=== PATIENT | female | born 1950 | race African-American/Black ===

== ENCOUNTER 2017-11-22 08:24 | Day surgery (SDC) | payer OTHER, MEDICAID ==
[2017-11-22] MEDS ORDERED: NS 500 ML IV 500 ML IV ONE (08:39)
[2017-11-22] MEDS ORDERED: TETRACAINE 0.5% OPHTH 1 DOSE AFFEYE ONE ×3 (09:00→12:42)
[2017-11-22] MEDS ORDERED: VIGAMOX 0.5% OPHTH 1 DOSE AFFEYE ONE ×3 (09:05→09:15)
[2017-11-22] MEDS ORDERED: PROLENSA OPHTH 1 DOSE AFFEYE ONE (09:16)
[2017-11-22] MEDS ORDERED: ALPHAGAN-P OPHTH 1 DOSE AFFEYE ONE (09:17)
[2017-11-22] MEDS ORDERED: MYDRIACIL OPHTH 1 DOSE AFFEYE ONE ×3 (09:18→09:20)
[2017-11-22] MEDS ORDERED: AK-DILATE 2.5% OPHTH 1 DOSE OP ONE ×3 (09:18→09:20)
[2017-11-22] MEDS ORDERED: CYCLOGYL 1% OPHTH 1 DOSE OP ONE ×3 (09:18→09:20)
[2017-11-22] MEDS ORDERED: BETADINE OPHTH SOLN 5% EACHEYE ONE (12:38)
[2017-11-22] MEDS ORDERED: XYLOCAINE-MPF 1% IJ ONE (12:43)
[2017-11-22] MEDS ORDERED: ADRENALINE CHL INJ IJ ONE (12:43)
[2017-11-22] MEDS ORDERED: DUOVISC IO ONE (12:43)
[2017-11-22] MEDS ORDERED: VIGAMOX 0.5% AFFEYE ONE (12:50)
[2017-11-22] MEDS ORDERED: BSS OPHTH (PLAIN) 500 ML with VANCOMYCIN HCL 500 MG VIAL 25 MG, ADRENALINE CHL INJ 1 MG IR ONE ×3 (12:51)
[2017-11-22 15:22] VITALS: BP 150/75
== END 2017-11-22 13:15 | disposition home or self-care (01) ==
LOC: SURG1 08:24
PROVIDERS: ATTEND Ophthalmology
PROC: 08RK3JZ Replacement of Left Lens with Synthetic Substitute, Percutaneous Approach (ICD-10-PCS; principal; 2017-11-22 15:00)
PROC: 08DK3ZZ Extraction of Left Lens, Percutaneous Approach (ICD-10-PCS; principal; 2017-11-22 15:00)
DX: H25.12 Age-related nuclear cataract, left eye (principal); H25.012 Cortical age-related cataract, left eye
CPT/HCPCS: A4217; J0170; J3370

== ENCOUNTER 2017-12-06 06:52 | Day surgery (SDC) | payer OTHER, MEDICAID ==
[~2017-12-06 06:52] MED LIST: NS 1000 ML 1,000 ML ONE
[2017-12-06] MEDS ORDERED: TETRACAINE 0.5% OPHTH 1 DOSE AFFEYE ONE ×2 (07:00→09:46)
[2017-12-06] MEDS ORDERED: VIGAMOX 0.5% OPHTH 1 DOSE AFFEYE ONE ×4 (07:05→10:09)
[2017-12-06] MEDS ORDERED: PROLENSA OPHTH 1 DOSE AFFEYE ONE (07:16)
[2017-12-06] MEDS ORDERED: ALPHAGAN-P OPHTH 1 DOSE AFFEYE ONE (07:17)
[2017-12-06] MEDS ORDERED: AK-DILATE 2.5% OPHTH 1 DOSE OP ONE ×3 (07:18→07:20)
[2017-12-06] MEDS ORDERED: CYCLOGYL 1% OPHTH 1 DOSE OP ONE ×3 (07:18→07:20)
[2017-12-06] MEDS ORDERED: MYDRIACIL OPHTH 1 DOSE AFFEYE ONE ×3 (07:18→07:20)
[2017-12-06] MEDS ORDERED: BETADINE OPHTH SOLN 5% EACHEYE ONE (09:46)
[2017-12-06] MEDS ORDERED: XYLOCAINE-MPF 1% IJ ONE (09:56)
[2017-12-06] MEDS ORDERED: DUOVISC IO ONE (09:56)
[2017-12-06] MEDS ORDERED: BSS OPHTH (PLAIN) 500 ML with VANCOMYCIN HCL 500 MG VIAL 25 MG, ADRENALINE CHL INJ 1 MG IR ONE ×3 (09:56)
[2017-12-06] MEDS ORDERED: ADRENALINE CHL INJ IJ ONE (09:56)
[2017-12-06 13:48] VITALS: BP 127/60
[2017-12-06] MEDS ORDERED: DIPRIVAN VIAL ONE (13:57)
== END 2017-12-06 10:35 | disposition home or self-care (01) ==
LOC: SURG1 06:52
PROVIDERS: ATTEND Ophthalmology
PROC: 08DJ3ZZ Extraction of Right Lens, Percutaneous Approach (ICD-10-PCS; principal; 2017-12-06 08:30)
PROC: 08RJ3JZ Replacement of Right Lens with Synthetic Substitute, Percutaneous Approach (ICD-10-PCS; principal; 2017-12-06 08:30)
DX: H25.11 Age-related nuclear cataract, right eye (principal); H25.011 Cortical age-related cataract, right eye
CPT/HCPCS: A4217; J0170; J3370; J3490